=== PATIENT | female | born 1945 | race Caucasian/White ===

== ENCOUNTER 2017-01-19 08:48 | Day surgery (SDC) | payer MEDICARE, BC ==
[~2017-01-19] VITALS: Ht 167.6 cm; Wt 99.8 kg
[~2017-01-19 08:48] MED LIST: ALIVE WOMENS ENERGY PO; ATROVENT H17 MCG/ACT IN; CIPROFLOXACN250 MG PO; CO Q-10200 MG PO; D MANNOS PO; DIFLUCAN150 MG PO; DILAUDID 2MG2 MG/TA1 PO; FOLIC ACID800 MCG PO; GARLIC1000 MG PO; GNP CINNAMON500 M1 PO; HUMULIN 70/30 SC; LEVOTHYROXIN88 MC1 PO; LUTEIN PO; MILK THISTLE150 MG PO; PROBIOTI2 PO; QUERCETIN PO; VITAMIN C TR/R500 MG PO; ZEAXANTHIN PO; [UNRECOGNIZED DRUG - CODE] PO; [UNRECOGNIZED DRUG - OTHER]; [UNRECOGNIZED DRUG - OTHER] PO; [UNRECOGNIZED DRUG - OTHER] PO; [UNRECOGNIZED DRUG - OTHER] PO; [UNRECOGNIZED DRUG - OTHER] PO; [UNRECOGNIZED DRUG - OTHER] PO
[2017-01-19 12:03] VITALS: BP 134/62
== END 2017-01-19 11:35 | disposition home or self-care (01) ==
LOC: ENDO 08:48
PROVIDERS: ATTEND Surgery
PROC: 0DJD8ZZ Inspection of Lower Intestinal Tract, Via Natural or Artificial Opening Endoscopic (ICD-10-PCS; principal; 2017-01-19)
DX: R10.32 Left lower quadrant pain (principal); R10.31 Right lower quadrant pain; K57.30 Diverticulosis of large intestine without perforation or abscess without bleeding; E11.9 Type 2 diabetes mellitus without complications